=== PATIENT | male | born 1975 | race Two or more races ===

== ENCOUNTER → 2017-11-11 | Emergency (ER) | payer OTHER ==
[~2017-11-11] VITALS: Ht 165.1 cm; Wt 86.2 kg
== END | disposition home or self-care (01) ==
LOC: ER 09:09
DX: K57.92 Diverticulitis of intestine, part unspecified, without perforation or abscess without bleeding (principal)

== ENCOUNTER 2017-11-13 12:13 | Inpatient (IN) | payer OTHER ==
[~2017-11-13] VITALS: Ht 170.2 cm; Wt 74.8 kg
== END 2017-12-10 15:51 | disposition home or self-care (01) | DRG 391 ==
LOC: ER 12:13 → MEDI 14:40
PROC: BW21Y0Z Computerized Tomography (CT Scan) of Abdomen and Pelvis using Other Contrast, Unenhanced and Enhanced (ICD-10-PCS; 2017-11-16)
PROC: 02HV33Z Insertion of Infusion Device into Superior Vena Cava, Percutaneous Approach (ICD-10-PCS; 2017-11-18)
PROC: 0W9G30Z Drainage of Peritoneal Cavity with Drainage Device, Percutaneous Approach (ICD-10-PCS; principal; 2017-11-19)
PROC: 4A033R1 Measurement of Arterial Saturation, Peripheral, Percutaneous Approach (ICD-10-PCS; 2017-11-20)
PROC: BB24ZZZ Computerized Tomography (CT Scan) of Bilateral Lungs (ICD-10-PCS; 2017-11-21)
PROC: 3E0436Z Introduction of Nutritional Substance into Central Vein, Percutaneous Approach (ICD-10-PCS; 2017-11-21)
PROC: BW21Y0Z Computerized Tomography (CT Scan) of Abdomen and Pelvis using Other Contrast, Unenhanced and Enhanced (ICD-10-PCS; 2017-11-24)
PROC: BW21Y0Z Computerized Tomography (CT Scan) of Abdomen and Pelvis using Other Contrast, Unenhanced and Enhanced (ICD-10-PCS; 2017-12-01)
PROC: BW21Y0Z Computerized Tomography (CT Scan) of Abdomen and Pelvis using Other Contrast, Unenhanced and Enhanced (ICD-10-PCS; 2017-12-08)
DX: K57.20 Diverticulitis of large intestine with perforation and abscess without bleeding (principal); J18.0 Bronchopneumonia, unspecified organism; K56.690 Other partial intestinal obstruction; J90 Pleural effusion, not elsewhere classified; J98.11 Atelectasis; B37.89 Other sites of candidiasis; R09.02 Hypoxemia; B96.29 Other Escherichia coli [E. coli] as the cause of diseases classified elsewhere; Y95 Nosocomial condition

== ENCOUNTER 2018-01-28 15:22 | Outpatient (CLI) | payer OTHER | END 2018-01-28 15:30 | disposition home or self-care (01) | LOC: SONOGRAMA 15:22 → RAD 15:22 | DX: C20 Malignant neoplasm of rectum (principal); K92.1 Melena; K57.30 Diverticulosis of large intestine without perforation or abscess without bleeding ==

== ENCOUNTER 2018-02-01 08:30 | Inpatient (IN) | payer OTHER ==
[~2018-02-01] VITALS: Ht 165.1 cm; Wt 81.6 kg
== END 2018-02-11 18:05 | disposition home or self-care (01) | DRG 329 ==
LOC: O/R 02-08 06:10 → SURG 02-08 07:00
PROVIDERS: Colon & Rectal Surgery
PROC: 0DJD8ZZ Inspection of Lower Intestinal Tract, Via Natural or Artificial Opening Endoscopic (ICD-10-PCS; 2018-02-08)
PROC: 0DTN4ZZ Resection of Sigmoid Colon, Percutaneous Endoscopic Approach (ICD-10-PCS; principal; 2018-02-08 07:00)
DX: K57.20 Diverticulitis of large intestine with perforation and abscess without bleeding (principal); J16.8 Pneumonia due to other specified infectious organisms; K56.699 Other intestinal obstruction unspecified as to partial versus complete obstruction; L02.211 Cutaneous abscess of abdominal wall; J91.8 Pleural effusion in other conditions classified elsewhere; Z85.048 Personal history of other malignant neoplasm of rectum, rectosigmoid junction, and anus

== ENCOUNTER 2019-03-03 08:21 | Day surgery (SDC) | payer OTHER | END 2019-03-03 14:53 | disposition home or self-care (01) | LOC: AMB-ENDOS 08:21 | DX: K57.32 Diverticulitis of large intestine without perforation or abscess without bleeding (principal); K64.1 Second degree hemorrhoids ==

== ENCOUNTER 2019-09-11 00:10 | Emergency (ER) | payer OTHER ==
[~2019-09-11] VITALS: Ht 165.1 cm; Wt 83.9 kg
== END 2019-09-11 07:44 ==
LOC: ER 00:10
DX: R55 Syncope and collapse (principal)

== ENCOUNTER 2019-09-25 12:45 | Outpatient (CLI) | payer OTHER | END 2019-09-25 12:48 | disposition home or self-care (01) | LOC: RAD 12:45 | DX: Z01.811 Encounter for preprocedural respiratory examination (principal) ==

== ENCOUNTER 2019-10-04 06:21 | Day surgery (SDC) | payer OTHER ==
[2019-10-04] MEDS ORDERED: PERCOCET 5-3251 EACH PO (17:21)
[2019-10-04] MEDS ORDERED: COLACE100 MG PO (17:22)
[2019-10-04] MEDS ORDERED: NEURONTIN600 M1 PO (17:22)
== END 2019-10-04 22:21 | disposition home or self-care (01) ==
LOC: CIR.AMB 06:21 → ADM 14:15 → CIR.AMB 14:15
DX: K40.90 Unilateral inguinal hernia, without obstruction or gangrene, not specified as recurrent (principal)

== ENCOUNTER 2020-12-20 09:56 | Day surgery (SDC) | payer OTHER ==
[~2020-12-20 09:56] MED LIST: COLACE100 MG PO; NEURONTIN600 M1 PO; PERCOCET 5-3251 EACH PO
== END 2020-12-20 17:30 | disposition home or self-care (01) ==
LOC: AMB-ENDOS 09:56
PROVIDERS: ATTEND Colon & Rectal Surgery
DX: K62.89 Other specified diseases of anus and rectum (principal); K64.0 First degree hemorrhoids; Z20.822 Contact with and (suspected) exposure to COVID-19